=== PATIENT | female | born 1975 | race Caucasian/White ===

== ENCOUNTER 2020-07-09 15:09 | Inpatient (IN) | payer OTHER ==
[~2020-07-09] VITALS: Ht 172.7 cm; Wt 89.1 kg
[2020-07-09] MEDS ORDERED: ACETAMINOPHEN 500 MG TABLET PO ONE ×2 (15:55→16:00)
[2020-07-09] MEDS ORDERED: IV NORMAL SALINE 1,000ML 1,000 ML IV ONE (16:00)
[2020-07-09] MEDS ORDERED: IOHEXOL 300 MG/ML 75 ML VIAL. IV ONE (16:00)
[2020-07-09] MEDS ORDERED: ONDANSETRON PF 4 MG/2 ML VIAL. IVP ONE (16:00)
--- NOTE | 2020-07-09 16:02 | PHYS DOC ---
General Adult EDM: Chief Complaint: FEVER HPI: HPI: 45-year-old female presents with fever. She has had a fever for almost 5 days. She has had vomiting in the last 2 days. She went to [facility] where they did some kind of testing. They called her today and told her to go to the emergency room. She is not exactly sure what abnormal labs cause them to want her to come the emergency room. The patient did not initially have a cough. She has had a mild cough yesterday and today. She was tested for Covid and influenza 2 days ago and they were both negative. Patient denies dysuria or increased urinary frequency. She has no idea why she has a fever. Review of Systems: Review of Systems: Constitutional: Fever Eyes: Denies change in visual acuity HENT: Denies nasal congestion or sore throat Respiratory: Intermittent cough without shortness of breath Cardiovascular: Denies chest pain or edema GI: Denies abdominal pain, nausea, vomiting, bloody stools or diarrhea : Denies dysuria Musculoskeletal: Denies back pain or joint pain Integument: Denies rash Neurologic: Denies headache, focal weakness or sensory changes Endocrine: Denies polyuria or polydipsia Lymphatic: Denies swollen glands Psychiatric: Denies depression or anxiety Current Medications: Current Meds: Current Medications Medications (Trade) Dose Ordered Sig/[facility] Start Time Stop Time Status Last Admin Dose Admin Acetaminophen (Tylenol) 1,000 mg 1X ONCE 07/09/20 16:00 07/09/20 16:01 UNV Sodium Chloride 1,000 ml @ 1,000 mls/hr 1X ONCE 07/09/20 16:00 07/09/20 16:59 UNV Allergies: Allergies: Allergies Coded Allergies Type Severity Reaction Last Updated Verified Sulfa (Sulfonamide Antibiotics) Allergy Unknown 07/09/20 Yes acetaminophen Allergy Unknown 07/09/20 Yes hydrocodone Allergy Unknown 07/09/20 Yes Uncoded Allergies Type Severity Reaction Last Updated Verified OLD RABIE SHOT Allergy Unknown 07/09/20 Physical Exam: PE: Constitutional: Well developed, well nourished, obese, mild acute distress. [] HENT: Normocephalic, atraumatic, bilateral external ears normal, oropharynx moist, no oral exudates, nose normal. [] Eyes: PERRLA, EOMI, conjunctiva normal, no discharge. [] Neck: Normal range of motion, no tenderness, supple, no stridor. [] Cardiovascular: Heart rate 103, regular rhythm, no murmur [] Lungs & Thorax: Bilateral breath sounds clear to auscultation [] Abdomen: Bowel sounds normal, soft, mild left lower quadrant tenderness without guarding, no masses, no pulsatile masses. [] Skin: Warm, dry, no erythema, no rash. [] Back: No tenderness, no CVA tenderness. [] Extremities: No tenderness, no cyanosis, no clubbing, ROM intact, no edema. [] Neurologic: Alert and oriented X 3, normal motor function, normal sensory function, no focal deficits noted. [] Psychologic: Affect normal, judgement normal, mood concerned. [] EKG: EKG: [] Radiology/Procedures: Radiology/Procedures: [] Impressions: Exam: CT of chest without contrast. CT of abdomen and pelvis with contrast INDICATION: Fever, lower abdominal pain TECHNIQUE: Sequential axial images through the chest obtained without IV contrast. Sequential axial images through the abdomen and pelvis obtained following the administration of 75 mL of Isovue-370 IV contrast. Sagittal and co brittany reformatted images were reconstructed from the axial data and reviewed. Exposure: One or more of the following in the visualized dose reduction techniques were utilized for this examination: 1. Automated exposure control 2. Adjustment of the MA and/or KV according to patient size 3. Use of iterative of reconstructive technique Comparisons: None FINDINGS: Visualized portions of the thyroid are unremarkable. Mildly enlarged right hilar lymph nodes noted. Heart size is normal. No pericardial effusion. Moderate coronary artery calcifications. Thoracic aorta has a normal course and caliber. Pulmonary artery is not enlarged. Airways are patent. There is consolidative changes noted in the right lower lobe. No pneumothorax. No suspicious lung nodules. No pleural effusion or thickening. Liver, spleen, pancreas, and adrenals are unremarkable. Gallbladder surgically absent. No perinephric inflammation or hydronephrosis. No renal or ureteral calculi are identified. Bladder is decompressed not well evaluated. Uterus is absent. There is a cystic lesion at the left adnexa which measures approximately 3.1 cm in diameter. Moderate amount stool in colon. Appendix is normal. Small bowel is unremarkable. No free intra-abdominal air or fluid. No obstruction. Abdominal aorta has a normal course and caliber. No enlarged intra-abdominal lymph nodes are identified. No suspicious osseous lesions or acute fractures. IMPRESSION: 1. Consolidative changes in the right lower lobe favored to represent pneumonia. Follow-up imaging posttreatment to ensure resolution is recommended. 2. Right hilar adenopathy, likely reactive to the above process 3. Left adnexal cystic lesion measuring 3.1 cm in diameter favored represent simple cyst in the left ovary. Electronically signed by: Bernardo Jackman MD (07/09/2020 5:03 PM) [facility] DICTATED AND SIGNED BY: BERNARDO JACKMAN MD DATE: 07/09/201653 CC: KATELIN BENITEZ DO; PERI CORREIA ~MTH0 0 Heart Score: C/O Chest Pain: No Risk Factors: Risk Factors: DM, Current or recent (<one month) smoker, HTN, HLP, family history of CAD, obesity. Risk Scores: Score 0 - 3: 2.5% MACE over next 6 weeks - Discharge Home Score 4 - 6: 20.3% MACE over next 6 weeks - Admit for Clinical Observation Score 7 - 10: 72.7% MACE over next 6 weeks - Early Invasive Strategies Course & Med Decision Making: Course & Med Decision Making Pertinent Labs and Imaging studies reviewed. (See chart for details) On arrival the patient has a fever of 102.9. Her heart rate is 103, blood pressure 110/55. Her O2 is 92% on room air. Patient meets criteria for sepsis. See sepsis assessments for more details. I have ordered 30 mL/kg of fluids for the patient, blood cultures, lactic acid, and a gram of Rocephin. Work-up is pending. The patient's chest x-ray shows pneumonia. She also has a potassium of 2.8. I have ordered [address] of the chest confirms pneumonia. I will a dditionally give the patient azithromycin by IV. I will admit her to the hospital for sepsis caused by pneumonia. I spoke with Dr. Burks and he has accepted the patient for admission. 38 minutes of critical care time spent on this patient exclusive of other billable procedures. [] Dragon Disclaimer: Dragon Disclaimer: This electronic medical record was generated, in whole or in part, using a voice recognition dictation system. Departure Departure: Impression: Primary Impression: Sepsis Qualified Codes: A41.9 - Sepsis, unspecified organism Additional Impressions: Pneumonia Qualified Codes: J18.9 - Pneumonia, unspecified organism Elevated liver enzymes Hypokalemia Disposition: 09 ADMITTED INPATIENT Admitting Physician: Denzel Burks Condition: GUARDED Referrals: PERI CORREIA (PCP) Sepsis Assessment: Date and Time of Assessment Date: July 09, 2020 Time: 16:01 Respirations Respiratory Effort: Normal Respiratory Pattern: Tachypnea Cardiovascular Pulse Rhythm: Regular Lung Sounds Breath Sounds: Clear Capillary Refill Capillary Refill: Rt Hand < 3 seconds Peripheral Pulse Pulse Location: Monitor Pulse Strength: Normal (2+) Pulse Assessment Method: Monitor Integumentary Skin: Warm Skin Moisture: Moist Skin Turgor: Normal Skin Color: no erythema Fingernail Color: WNL Sepsis Assessment: Date and Time of Assessment Date: July 09, 2020 Time: 17:13 Respirations Respiratory Effort: Normal Respiratory Pattern: Normal Cardiovascular Pulse Rhythm: Regular HEART: No murmurs noted Lung Sounds Breath Sounds: Clear Capillary Refill Capillary Refill: Rt Hand < 3 seconds Peripheral Pulse Pulse Location: Monitor Pulse Strength: Normal (2+) Pulse Assessment Method: Monitor Integumentary Skin: Warm Skin Moisture: Dry Skin Turgor: Normal Skin Color: no erythema Fingernail Color: WNL KATELIN BENITEZ DO July 09, 2020 16:02
[2020-07-09] MEDS ORDERED: cefTRIAXone SODIUM 1 GM VIAL ONE (16:16)
[2020-07-09] MEDS ORDERED: IV NORMAL SALINE 50ML 50 ML ONE ×2 (16:16→16:18)
[2020-07-09 16:34] LABS: BASO % 0 % (0-3); EOS % 0 % (0-3); HEMATOCRIT 37.3 % (36.0-47.0); HEMOGLOBIN 12.5 g/dL (12.0-15.5); LYMPH # 0.6 x10^3/uL (1.0-4.8); LYMPH % 5 % (24-48); MEAN CORPUSCULAR HEMOGLOBIN 31 pg (25-35); MEAN CORPUSCULAR HGB CONC 34 g/dL (31-37); MEAN CORPUSCULAR VOLUME 93 fL (79-100); MONO % 8 % (0-9); NEUT # 11.8 x10^3uL (1.8-7.7); NEUT % 88 % (31-73); PLATELET COUNT 278 x10^3/uL (140-400); RED CELL DISTRIBUTION WIDTH 12.4 % (11.5-14.5); WHITE BLOOD COUNT 13.5 x10^3/uL (4.0-11.0)
[2020-07-09] MEDS: IV NORMAL SALINE 1,000ML 1,000 ML IV SCH ×2 (16:38→16:40)
--- NOTE | 2020-07-09 16:44 | RAD ---
EXAM: Chest, 2 views. HISTORY: Fever. COMPARISON: None. FINDINGS: 2 views of the chest are obtained. There is partially consolidated right lower lobe infiltr ate. There is no pleural effusion or pneumothorax. The heart is normal in size. IMPRESSION: Partially consolidated right lower lobe pneumonia. Follow-up to confirm resolution and ex clude a persistent underlying lesion. Electronically signed by: Brittany Muñoz MD (07/09/2020 4:41 PM) [id number]
[2020-07-09 16:59] LABS: ALBUMIN 2.6 g/dL (3.4-5.0); ALBUMIN/GLOBULIN RATIO 0.5 (1.0-1.7); CALCIUM 8.3 mg/dL (8.5-10.1); CREATININE 1.3 mg/dL (0.6-1.0); GFR 43.9; TOTAL BILIRUBIN 0.9 mg/dL (0.2-1.0); TOTAL PROTEIN 7.4 g/dL (6.4-8.2)
[2020-07-09 17:01] LABS: POTASSIUM 2.8 mmol/L (3.5-5.1)
--- NOTE | 2020-07-09 17:05 | RAD ---
Exam: CT of chest without contrast. CT of abdomen and pelvis with contrast INDICATION: Fever, lower abdominal pain TECHNIQUE: Sequential axial images through the chest obtained without IV contrast. Sequential axial i mages through the abdomen and pelvis obtained following the administration of 75 mL of Isovue-370 IV contrast. Sagittal and coronal reformatted images were reconstructed from the axial data and reviewed . Exposure: One or more of the following in the visualized dose reduction techniques were utilized for this examination: 1. Automated exposure control 2. Adjustment of the MA and/or KV according to patient size 3. Use of iterative of reconstructive technique Comparisons: None FINDINGS: Visualized portions of the thyroid are unremarkable. Mildly enlarged right hilar lymph nodes noted. Heart size is normal. No pericardial effusion. Moderate coronary artery calcifications. Thoracic aort a has a normal course and caliber. Pulmonary artery is not enlarged. Airways are patent. There is consolidative changes noted in the right lower lobe. No pneumothorax. No suspicious lung nodules. No pleural effusion or thickening. Liver, spleen, pancreas, and adrenals are unremarkable. Gallbladder surgically absent. No perinephric inflammation or hydronephrosis. No renal or ureteral calculi are identified. Bladder is decompressed not well evaluated. Uterus is absent. There is a cystic lesion at the left ad nexa which measures approximately 3.1 cm in diameter. Moderate amount stool in colon. Appendix is normal. Small bowel is unremarkable. No free intra-abdomi nal air or fluid. No obstruction. Abdominal aorta has a normal course and caliber. No enlarged intra-abdominal lymph nodes are identified. No suspicious osseous lesions or acute fractures. IMPRESSION: 1. Consolidative changes in the right lower lobe favored to represent pneumonia. Follow-up imaging p osttreatment to ensure resolution is recommended. 2. Right hilar adenopathy, likely reactive to the above process 3. Left adnexal cystic lesion measuring 3.1 cm in diameter favored represent simple cyst in the left ovary. Electronically signed by: Bernardo Baldwin MD (07/09/2020 5:03 PM) [facility]
[2020-07-09] MEDS ORDERED: AZITHROMYCIN 500 MG in IV NORMAL SALINE 250ML 250 ML IV ONE (17:30)
[2020-07-09] MEDS: POTASSIUM CHLORIDE 20MEQ 100 ML IV SCH (18:03)
[2020-07-09] MEDS ORDERED: IV NORMAL SALINE 250ML 250 ML ONE (18:09)
[2020-07-09] MEDS ORDERED: AZITHROMYCIN 500 MG VIAL. IV ONE (18:10)
[2020-07-09] MEDS ORDERED: ONDANSETRON PF 4 MG/2 ML VIAL. IVP PRN (18:15)
[2020-07-09] MEDS ORDERED: IV NORMAL SALINE 500ML 500 ML IV ONE (20:30)
[2020-07-09 21:22] VITALS: BP 96/60
--- NOTE | 2020-07-09 22:00 | NUR ---
The patient, MILO VALDES, 45 y/o, F admitted by SANDOVAL MINOR MD, was given written information regarding hospital policies, unit procedures and contact persons. Valuables were checked and VITALS OBTAINED. PT IS A&OX4 AND ABLE TO EXPRESS OWN CONCERNS. PT IS CURRENTLY RESTING IN BED WITH HOB ELEVATED.
[2020-07-09] MEDS ORDERED: MINERAL OIL/PETROLATUM,WHITE OPHTH OINT 3.5GM TUBE. OU PRN (22:30)
[2020-07-09] MEDS: METOPROLOL SUCC 24HR ER 50 MG TAB.ER.24H. PO SCH (22:44)
[2020-07-09] MEDS: ATORVASTATIN CALCIUM 20 MG TABLET PO SCH (22:57)
[2020-07-09] MEDS: LOSARTAN 50 MG TABLET. PO SCH (22:58)
[2020-07-09] MEDS: ACETAMINOPHEN 500 MG TABLET PO PRN (22:58)
[2020-07-09] MEDS ORDERED: hydroCHLOROthiazide 25 MG TABLET PO SCH (23:00)
[2020-07-09 23:28] VITALS: BP 143/74
[2020-07-10] MEDS: POTASSIUM CHLORIDE 20MEQ 100 ML IV SCH (00:35)
--- NOTE | 2020-07-10 02:25 | NUR ---
PT HAS HAD FEVERS THROUGH THE NIGHT TYLENOL AND ICE PACKS WERE GIVEN. PT CURRENTLY IN BED WITH ICE ON BACK OF NECK AND IN EACH ARM PIT. WILL CONTINUE TO MONITOR.
[2020-07-10 02:47] LABS: CLARITY,URINE HAZY; COLOR,URINE AMBER
[2020-07-10 02:48] LABS: BACTERIA,URINE FEW /HPF (0-FEW); BILIRUBIN,URINE SMALL (NEG); GLUCOSE,URINE 100 mg/dL (NEG); NITRITE,URINE NEG (NEG); SQUAMOUS EPITHELIAL CELL,UR MOD /LPF; UROBILINOGEN,URINE >=8.0 mg/dL (0.2 mg/dL); WBC,URINE 0 /HPF (0-4)
[2020-07-10 02:49] LABS: YEAST,URINE PRESENT /HPF
--- NOTE | 2020-07-10 04:11 | NUR ---
pt has own insulin pump/monitor. aware and is going to let pt continue to use pump/monitor during her admission. Novolog in pump
[2020-07-10] MEDS: ACETAMINOPHEN 500 MG TABLET PO PRN ×4 (05:05→21:34)
--- NOTE | 2020-07-10 05:14 | NUR ---
RECEIVED IN REPORT PT HAD RECEIVED 1000 ML NS X2. FOR START AND STOP TIMES REFER TO IV SPREAD SHEET.
[2020-07-10 05:50] VITALS: BP 147/85
[2020-07-10 07:30] LABS: CALCIUM 7.5 mg/dL (8.5-10.1); GFR 59.4; POTASSIUM 3.4 mmol/L (3.5-5.1)
[2020-07-10] MEDS: LACTOBACILLUS RHAMNOSUS GG 1 CAPSULE. PO SCH ×2 (09:00→21:34)
--- NOTE | 2020-07-10 09:21 | HP ---
ADMIT DATE: 07/09/2020 ATTENDING PHYSICIAN: Dr. Burks. CHIEF COMPLAINT: Fevers and cough. HISTORY OF PRESENT ILLNESS: The patient is a 45-year-old female admitted to the ED with several days of fevers, chills, cough and congestion. Workup in the ED showed a lobar infiltrate in the right lower lobe. She has had her COVID vaccines. She is a nonsmoker. She is diabetic; however. She does have an insulin pump. She is admitted then with a classic picture of community-acquired pneumococcal pneumonia. She was given initial dose of Zithromax and Rocephin. She was admitted for further IV antibiotics. She has had fevers. She does not have respiratory failure. She has adequate oxygen saturations on room air. PAST MEDICAL HISTORY: Significant for type 2 diabetes, insulin dependent. She has a pump managed by her primary care physician. ALLERGIES: SHE HAS ALLERGIES TO RABIES SHOT, SULFA DRUGS, TYLENOL, AND HYDROCODONE, EXACT REACTION IS UNCLEAR. CURRENT MEDICATIONS: Current scheduled medicine includes metoprolol, losartan, lactobacillus, Lipitor, and multivitamin. SOCIAL HISTORY: She is a nonsmoker, nondrinker. FAMILY HISTORY: Mom at age 62, ovarian cancer. There is also history of hypertension. REVIEW OF SYSTEMS: Significant for fevers up to 102.8 degrees Fahrenheit, chills, rigors. Minimal cough. No pleuritic symptoms. She denied any palpitation. All other systems reviewed and turned to be negative. PHYSICAL EXAMINATION: GENERAL: When I saw her, this is a pleasant, middle-aged female. INITIAL VITAL SIGNS: Showed a blood pressure of 143/74, her pulse is 74 and regular, temperature 102.3 degrees Fahrenheit, oxygen saturation 93% on room air. HEENT: Head is without trauma. Pupils are reactive. Sclerae nonicteric. Oropharynx is clear. NECK: Supple. No bruits or stridor. LUNGS: Coarse rhonchi at the right base. CARDIOVASCULAR: Showed regular heart tones. No gallops. ABDOMEN: Soft. EXTREMITIES: Without edema. NEUROLOGIC FINDING: Focally intact. SKIN: Warm and dry. PERTINENT LABORATORY STUDIES: The hemoglobin is 12.5 g/dL with a white count of 13,500. Initial potassium was 2.8 mEq per liter. Nonfasting blood sugar 136. Transaminases, AST 205. ALT 325. Bilirubin is normal. ASSESSMENT: 1. A 45-year-old female with a community-acquired pneumonia, right lower lobe classic presentation for pneumococcal pneumonia. 2. Type 2 diabetes mellitus with insulin pump. 3. Asymptomatic hypokalemia, this is being replaced. 4. Slight elevation of transaminases. I suspect this is due to nonalcoholic steatohepatitis. PLAN: 1. Admit to the inpatient unit. 2. Intravenous Rocephin and Zithromax will be continued on a daily basis. 3. Potassium supplementation. 4. Serial chemistries. 5. Diet as tolerated. 6. Continue insulin regimen per pump. At this time, I do not think that she will need any corticosteroids. 7. Follow up chest x-ray. STANTON/BEENA DR: Malvin TID: [id number] CC: PERI CORREIA
[2020-07-10 10:41] VITALS: BP 109/67
--- NOTE | 2020-07-10 13:05 | RAD ---
XR CHEST 1V CLINICAL INDICATIONS: Shortness of air. Lung infiltrate. Follow-up study. Comparison: July 09, 2020. Findings: Again seen is a consolidative right lower lobe lung infiltrate which has not improved. Left lung field remains clear. No pleural effusion or pneumothorax is seen. The heart size and mediastinu m and pulmonary vasculature and both hanane are stable. IMPRESSION: Persistent unchanged right lower lobe consolidative lung infiltrate. Electronically signed by: Edgar Quiros MD (07/10/2020 1:02 PM) [id number]
[2020-07-10 14:51] VITALS: BP 125/71
[2020-07-10] MEDS: AZITHROMYCIN 500 MG in IV NORMAL SALINE 250ML 250 ML IV SCH (17:30)
[2020-07-10 19:54] VITALS: BP 129/71
[2020-07-10] MEDS: LOSARTAN 50 MG TABLET. PO SCH (21:34)
[2020-07-10] MEDS: METOPROLOL SUCC 24HR ER 50 MG TAB.ER.24H. PO SCH (21:34)
[2020-07-10] MEDS: ATORVASTATIN CALCIUM 20 MG TABLET PO SCH (21:35)
[2020-07-10 23:19] VITALS: BP 116/66
[2020-07-10] MEDS: oxyCODONE/APAP 7.5/325 1 TAB TABLET PO PRN (23:33)
--- NOTE | 2020-07-11 01:34 | NUR ---
Pt c/o shivering and nausea with her fever, back and neck pain through the shift. Ice packs and percocet given. Pt sipping on iced diet dina isabel for nausea. Pt resting currently and core temp down to 99 degrees F.
[2020-07-11] MEDS: ACETAMINOPHEN 500 MG TABLET PO PRN ×3 (04:45→21:15)
[2020-07-11 04:56] VITALS: BP 135/69
[2020-07-11] MEDS ORDERED: IPRATRPIUM/ALBUTEROL 0.5/2.5MG 3 ML NEBU. ONE (05:13)
[2020-07-11] MEDS ORDERED: IPRATRPIUM/ALBUTEROL 0.5/2.5MG 3 ML NEBU. NEB ONE (05:30)
--- NOTE | 2020-07-11 05:37 | NUR ---
Pt c/o fever and shivering; tachypnea (36 RR) and oxygen saturation of 58% on room air observed with cyanosis of the lips. Rapid Response called. Pt given breathing treatment by RT with 7L oxygen bringing saturation up to 97%. Dr. Burks called and notified-orders given and implemented. Transfer to [place] being considered. ABGs, CBC and BMP drawn by lab. EKG and CXR also being performed. Pt resting with high flow nasal cannula at 7L with 96% oxygen saturation.
[2020-07-11 05:56] LABS: BGAS PH 7.39 (7.35-7.45)
[2020-07-11 05:58] LABS: BASO # 0.1 x10^3/uL (0.0-0.2); BASO % 1 % (0-3); EOS # 0.1 x10^3/uL (0.0-0.7); EOS % 0 % (0-3); HEMATOCRIT 34.8 % (36.0-47.0); HEMOGLOBIN 11.7 g/dL (12.0-15.5); LYMPH # 1.1 x10^3/uL (1.0-4.8); LYMPH % 8 % (24-48); MEAN CORPUSCULAR HEMOGLOBIN 32 pg (25-35); MEAN CORPUSCULAR HGB CONC 34 g/dL (31-37); MEAN CORPUSCULAR VOLUME 94 fL (79-100); MONO # 1.3 x10^3/uL (0.0-1.1); MONO % 9 % (0-9); NEUT # 12.4 x10^3uL (1.8-7.7); NEUT % 83 % (31-73); PLATELET COUNT 282 x10^3/uL (140-400); RED BLOOD COUNT 3.71 x10^6/uL (3.50-5.40); RED CELL DISTRIBUTION WIDTH 13.4 % (11.5-14.5)
[2020-07-11 06:04] LABS: CALCIUM 7.6 mg/dL (8.5-10.1); CREATININE 1.1 mg/dL (0.6-1.0); GFR 53.2; POTASSIUM 3.3 mmol/L (3.5-5.1)
--- NOTE | 2020-07-11 06:13 | EKG ---
[address] [address] Test Date: 2020-07-11 Test Time: 05:53:18 Pat Name: MILO VALDES Department: Room: 120 A Gender: F Other Sports Official: : 1975 Requested By: SANDOVAL MINOR Order Number: [id number] Reading MD: Faisal Ernandez Measurements Intervals Worden Rate: 107 P: 26 NH: 136 QRS: 37 QRSD: 60 T: 21 QT: 334 QTc: 451 Interpretive Statements SINUS TACHYCARDIA LOW LIMB LEAD VOLTAGE Electronically Signed On 07-13-2020 15:27:20 CDT by Faisal Ernandez
[2020-07-11] MEDS: IPRATRPIUM/ALBUTEROL 0.5/2.5MG 3 ML NEBU. NEB SCH ×4 (06:54→21:01)
--- NOTE | 2020-07-11 07:49 | RAD ---
XR CHEST 1V CLINICAL INDICATIONS: Shortness of breath lung infiltrate. Follow-up study. COMPARISON: July 10, 2020. Findings: Right lower lobe consolidative lung infiltrate has improved slightly. Linear atelectasis of the left midlung zone is now seen. No pleural effusion or pneumothorax is seen. Heart size and media stinum are stable. IMPRESSION: Stable right lower lobe lung infiltrate. Electronically signed by: Edgar Quiros MD (07/11/2020 7:46 AM) [id number]
[2020-07-11] MEDS: LACTOBACILLUS RHAMNOSUS GG 1 CAPSULE. PO SCH ×2 (09:06→21:13)
[2020-07-11] MEDS: oxyCODONE/APAP 7.5/325 1 TAB TABLET PO PRN ×3 (09:06→21:14)
[2020-07-11] MEDS ORDERED: TELM40TA PO (09:28)
[2020-07-11] MEDS ORDERED: ATOR20TA PO (09:29)
[2020-07-11] MEDS ORDERED: HYDR-2145 PO (09:29)
[2020-07-11] MEDS ORDERED: METO50TA29 PO (09:29)
--- NOTE | 2020-07-11 11:04 | PN ---
DATE: 07/11/2020 ATTENDING PHYSICIAN: Dr. Burks. SUBJECTIVE: The patient had desaturations, requiring supplemental oxygen. We initially had her on 7 liters, now down to 4 liters by nasal cannula to maintain saturation above 91%. OBJECTIVE: VITAL SIGNS: She is still having febrile spikes, T-max 100.4 degrees Fahrenheit, blood pressure is 135/69, respiratory rate fluctuates, room air oxygen saturation 91% on 4 liters at this time. HEENT: Head is without trauma. Pupils are reactive. Sclerae nonicteric. Oropharynx clear. NECK: Supple. LUNGS: Fairly good air movement. No wheezing. Significant rhonchi in the right base. HEART: Regular heart tones. No gallops. ABDOMEN: Soft. EXTREMITIES: Without edema. NEUROLOGIC: Focally intact. DIAGNOSTIC DATA: Followup chest x-ray this morning showed stable right lower lobe consolidation with slight ____. ASSESSMENT: 1. Community-acquired pneumonia, lobar pneumonia, classic presentation of Streptococcus pneumoniae. 2. Shunting with some hypoxemia, supplemental oxygen ordered. 3. Underlying type 2 diabetes, on insulin pump. PLAN: 1. We discussed whether she needs to be transferred to higher level of care. She prefers to stay here. I would give it another 24 hours to see if she improves. 2. Addition of Zosyn 4.5 grams IV q. 6 hours. 3. This will take the place of Rocephin. 4. Wean down supplemental oxygen. 5. Follow up x-rays as indicated. SUKH DR: Malvin TID: [id number]
[2020-07-11 11:51] VITALS: BP 120/63
[2020-07-11] MEDS: PIPERACILLIN/TAZOBACTAM 4.5 GM in IV NORMAL SALINE 50ML 50 ML IV SCH ×3 (12:21→23:46)
[2020-07-11 15:45] VITALS: BP 145/70
[2020-07-11] MEDS: AZITHROMYCIN 500 MG in IV NORMAL SALINE 250ML 250 ML IV SCH (18:00)
[2020-07-11 19:17] VITALS: BP 99/62
[2020-07-11] MEDS: LOSARTAN 25 MG TABLET. PO SCH (21:00)
[2020-07-11] MEDS: METOPROLOL SUCC 24HR ER 50 MG TAB.ER.24H. PO SCH (21:00)
[2020-07-11] MEDS ORDERED: METOPROLOL SUCC 24HR ER 50 MG TAB.ER.24H. PO SCH (21:00)
[2020-07-11] MEDS: ATORVASTATIN CALCIUM 20 MG TABLET PO SCH (21:13)
[2020-07-11] MEDS: hydroCHLOROthiazide 25 MG TABLET PO SCH (21:13)
[2020-07-11] MEDS: ONDANSETRON PF 4 MG/2 ML VIAL. IVP PRN (21:31)
[2020-07-11 22:54] VITALS: BP 94/56
[2020-07-12] MEDS: ONDANSETRON PF 4 MG/2 ML VIAL. IVP PRN ×3 (03:51→23:28)
[2020-07-12] MEDS: IPRATRPIUM/ALBUTEROL 0.5/2.5MG 3 ML NEBU. NEB SCH ×4 (05:21→21:43)
[2020-07-12 05:27] VITALS: BP 144/84
[2020-07-12] MEDS: PIPERACILLIN/TAZOBACTAM 4.5 GM in IV NORMAL SALINE 50ML 50 ML IV SCH ×4 (05:42→23:28)
--- NOTE | 2020-07-12 06:15 | NUR ---
Pt awake in bed at change of shift, stated that she feels "rough". Pt with low grade temp, Tylenol given and cool rags/ice packs per request. Pt with c/o right lower lung pain, Percocet given. IS teaching done by RT. Pt maintained O2 sat above 91% on 4L NC during shift. Pt c/o nausea off and on during night, PRN Zofran given and dina isabel given. Pt managed insulin pump independently after glucose readings.
[2020-07-12 07:29] LABS: CALCIUM 7.1 mg/dL (8.5-10.1); CREATININE 0.8 mg/dL (0.6-1.0); GFR 76.9; POTASSIUM 3.8 mmol/L (3.5-5.1)
[2020-07-12] MEDS: LACTOBACILLUS RHAMNOSUS GG 1 CAPSULE. PO SCH ×2 (08:12→20:30)
[2020-07-12] MEDS: ACETAMINOPHEN 500 MG TABLET PO PRN (08:16)
[2020-07-12] MEDS: oxyCODONE/APAP 7.5/325 1 TAB TABLET PO PRN (08:16)
--- NOTE | 2020-07-12 09:00 | NUR ---
pt c/o pain in right lower ribs this morning, given pain medication per order. pt c/o dry nose from oxygen, humidity applied.
[2020-07-12] MEDS ORDERED: FUROSEMIDE 40 MG/4 ML VIAL IVP ONE (10:15)
--- NOTE | 2020-07-12 10:57 | NUR ---
pt set up for shower, did not want to wear oxygen in shower, felt ok until the very end and started to become short of breath. assisted back to bed. spo2 checked on room air, 84%. 3L nc reapplied and rt here to give breathing treatment.
[2020-07-12 11:00] VITALS: BP 136/89
[2020-07-12] MEDS: oxyCODONE/APAP 10/325 1 TAB TABLET PO PRN ×3 (11:14→23:28)
[2020-07-12 14:50] VITALS: BP 143/92
[2020-07-12] MEDS: AZITHROMYCIN 500 MG in IV NORMAL SALINE 250ML 250 ML IV SCH (17:15)
[2020-07-12 19:18] VITALS: BP 112/65
[2020-07-12] MEDS: LOSARTAN 25 MG TABLET. PO SCH (20:30)
[2020-07-12] MEDS: ATORVASTATIN CALCIUM 20 MG TABLET PO SCH (20:30)
[2020-07-12] MEDS: hydroCHLOROthiazide 25 MG TABLET PO SCH (20:30)
[2020-07-12] MEDS: METOPROLOL SUCC 24HR ER 50 MG TAB.ER.24H. PO SCH (20:30)
--- NOTE | 2020-07-12 21:53 | PN ---
DATE: 07/12/2020 ATTENDING PHYSICIAN: Dr. Burks. SUBJECTIVE: She is feeling better. She does not have anymore rigors or chills. Her fever has ____. She is breathing better. She denied any dyspnea. Her oxygen saturations are 94% on 4 liters by nasal cannula. Main complaint is some bloating and distention in her abdomen related to the IV saline she received in the ED. OBJECTIVE FINDINGS: VITAL SIGNS: Blood pressure this morning is 140/84, pulse is 90 and regular, T-max 99.3 degrees Fahrenheit, oxygen saturation 94% on 4 liters. HEENT: Head is without trauma. Pupils are reactive. Sclerae nonicteric. Oropharynx is clear. NECK: Supple, no bruits identified. LUNGS: Diminished breath sounds at right base. CARDIOVASCULAR: Showed regular heart tones. No gallops. Peripheral pulses palpable and full. ABDOMEN: Slightly distended. No guarding or rebound tenderness. EXTREMITIES: Showed no edema. NEUROLOGIC FINDING: Focally intact. SKIN: Warm and dry. ASSESSMENT: 1. A 45-year-old female with lobar pneumonia, most likely pneumococcus right lower lobe. 2. Hypoxemia, improving. 3. Type 2 diabetes with insulin pump. 4. Essential hypertension. PLAN: 1. Wean down supplemental oxygen to maintain saturations greater than 90%. 2. Continue Zosyn. 3. We can discontinue Rocephin. 4. Intermittent Lasix ordered for bloating. 5. Diet as tolerated. STANTON/JOSS DR: STANTON/marine TID: [id number]
[2020-07-12 23:35] VITALS: BP 125/80
[2020-07-13] MEDS: IPRATRPIUM/ALBUTEROL 0.5/2.5MG 3 ML NEBU. NEB SCH ×4 (05:12→19:29)
[2020-07-13] MEDS: oxyCODONE/APAP 10/325 1 TAB TABLET PO PRN (05:35)
[2020-07-13] MEDS: PIPERACILLIN/TAZOBACTAM 4.5 GM in IV NORMAL SALINE 50ML 50 ML IV SCH ×4 (05:35→23:55)
[2020-07-13] MEDS: ONDANSETRON PF 4 MG/2 ML VIAL. IVP PRN (05:35)
[2020-07-13 05:55] VITALS: BP 147/87
[2020-07-13] MEDS: LACTOBACILLUS RHAMNOSUS GG 1 CAPSULE. PO SCH ×2 (08:17→21:05)
--- NOTE | 2020-07-13 08:35 | RAD ---
INDICATION: Reason: PNA f/u COMPARISON: July 11, 2020 FINDINGS: 2 view of chest obtained. Cardiac silhouette is similar to prior. Hypoexpanded exam. Bilateral airspace opacities most prominen t at the right greater than left lung base. IMPRESSION: * Bilateral pulmonic opacities are again seen and appears slightly increased from prior. Could be fr om bilateral infiltrate. Electronically signed by: Adalberto Rizo MD (07/13/2020 8:33 AM) [id number]
[2020-07-13] MEDS ORDERED: PROCHLORPERAZINE 10 MG/2 ML VIAL. IV PRN (11:15)
[2020-07-13 11:43] VITALS: BP 164/88
[2020-07-13] MEDS: oxyCODONE/APAP 5/325 1 TAB TABLET PO PRN ×2 (11:55→17:56)
[2020-07-13 15:00] VITALS: BP 161/88
--- NOTE | 2020-07-13 18:17 | NUR ---
NURSING NOTE PT IN BED THIS AM UPON ASSESSMENT AND MEDICATION ADMINISTRATION. PT STATED THAT SHE GETS NAUSEATED AT TIMES. PT NAUSEA MEDICATION NOT DUE. ORDER FOR COMPAZINE OBTAINED, PT ALSO REQUEST TO DECREASE PAIN MEDICATION DOSAGE. PT IS CALM AND COOPERATIVE, A&O. DR MINOR DISCONTINUED PT OXYGEN. ANA MARIA ROWAN.
[2020-07-13 18:53] VITALS: BP 137/87
[2020-07-13] MEDS: ACETAMINOPHEN 500 MG TABLET PO PRN (19:56)
[2020-07-13] MEDS ORDERED: OXYC1TAB19 PO (20:35)
--- NOTE | 2020-07-13 21:00 | PN ---
DATE: 07/13/2020 ATTENDING PHYSICIAN: Dr. Burks. SUBJECTIVE: The patient is breathing better. We were able to wean her off of supplemental oxygen. Her swelling and pleuritic type chest pains improved. She is moving air better. Nausea, not too severe, persist. She has been a type 1 diabetic for the last 40 years. I suspect she may have some component of diabetic gastroparesis. OBJECTIVE: VITAL SIGNS: Blood pressure is 125/80, pulse 96 and regular, temperature 98.6 degrees Fahrenheit, oxygen saturation 93% on room air. HEENT: Head is without trauma. Pupils are reactive. Sclerae nonicteric. Oropharynx clear. NECK: Supple. LUNGS: Coarse rhonchi at the right base. HEART: Regular heart tones. ABDOMEN: Soft. No guarding. EXTREMITIES: Without edema. NEUROLOGIC: Function focally intact. LABORATORY DATA: Follow-up chest x-ray showed improvement in clearing of the right lower lobe infiltrate. ASSESSMENT: 1. A 45-year-old female with lobar pneumonia and consolidation, most likely pneumococcus in the right lower lobe. 2. Hypoxemia, improving with adequate saturations on room air. 3. Type 1 diabetes with insulin pump. 4. Essential hypertension. PLAN: 1. Continue Zosyn as ordered. 2. Because of nausea, we will hold off the Zithromax. 3. Weaning down oxygen. 4. Continue Zosyn. 5. Intermittent Lasix. 6. Tentative discharge soon either tomorrow or the next day. STANTON/AUNG DR: Malvin TID: [id number]
[2020-07-13] MEDS: ATORVASTATIN CALCIUM 20 MG TABLET PO SCH (21:05)
[2020-07-13] MEDS: hydroCHLOROthiazide 25 MG TABLET PO SCH (21:05)
[2020-07-13] MEDS: LOSARTAN 25 MG TABLET. PO SCH (21:05)
[2020-07-13] MEDS: METOPROLOL SUCC 24HR ER 50 MG TAB.ER.24H. PO SCH (21:06)
[2020-07-13] MEDS: oxyCODONE/APAP 7.5/325 1 TAB TABLET PO PRN (23:55)
[2020-07-14] MEDS: IPRATRPIUM/ALBUTEROL 0.5/2.5MG 3 ML NEBU. NEB SCH ×2 (04:46→09:13)
[2020-07-14] MEDS: PIPERACILLIN/TAZOBACTAM 4.5 GM in IV NORMAL SALINE 50ML 50 ML IV SCH ×2 (06:00→11:36)
[2020-07-14 06:21] VITALS: BP 145/95
[2020-07-14] MEDS: oxyCODONE/APAP 7.5/325 1 TAB TABLET PO PRN ×2 (07:16→13:43)
[2020-07-14] MEDS: LACTOBACILLUS RHAMNOSUS GG 1 CAPSULE. PO SCH (08:18)
[2020-07-14 11:47] VITALS: BP 160/86
[2020-07-14 13:31] LABS: BASO % 1 % (0-3); EOS # 0.2 x10^3/uL (0.0-0.7); EOS % 3 % (0-3); HEMATOCRIT 33.7 % (36.0-47.0); HEMOGLOBIN 11.4 g/dL (12.0-15.5); LYMPH # 1.6 x10^3/uL (1.0-4.8); LYMPH % 21 % (24-48); MEAN CORPUSCULAR HEMOGLOBIN 32 pg (25-35); MEAN CORPUSCULAR HGB CONC 34 g/dL (31-37); MEAN CORPUSCULAR VOLUME 94 fL (79-100); MONO # 0.5 x10^3/uL (0.0-1.1); MONO % 6 % (0-9); NEUT # 5.6 x10^3uL (1.8-7.7); NEUT % 70 % (31-73); PLATELET COUNT 506 x10^3/uL (140-400); RED BLOOD COUNT 3.58 x10^6/uL (3.50-5.40); RED CELL DISTRIBUTION WIDTH 13.8 % (11.5-14.5)
[2020-07-14 13:41] LABS: CALCIUM 8.7 mg/dL (8.5-10.1); CREATININE 1.1 mg/dL (0.6-1.0); GFR 53.2; POTASSIUM 3.2 mmol/L (3.5-5.1)
[2020-07-14 13:47] LABS: ALBUMIN 2.1 g/dL (3.4-5.0); ALBUMIN/GLOBULIN RATIO 0.4 (1.0-1.7); TOTAL BILIRUBIN 0.7 mg/dL (0.2-1.0); TOTAL PROTEIN 7.4 g/dL (6.4-8.2)
[2020-07-14] MEDS ORDERED: POTA20TA4 PO (14:11)
[2020-07-14] MEDS ORDERED: CEFD300C PO (14:11)
[2020-07-14] MEDS ORDERED: POTASSIUM CHLORIDE 20 MEQ TABLET.ER. PO ONE (14:30)
--- NOTE | 2020-07-14 14:57 | NUR ---
DISCHARGE Pt discharged today by Dr. Carter. Pt and verbalized understanding of discharge and hard copy prescriptions. All questions addressed. Pt GCS 15 and VSS upon discharge. CC, RN
--- NOTE | 2020-07-14 19:46 | DS ---
DATE OF DISCHARGE: 07/14/2020 HOSPITAL COURSE: The patient was admitted on 07/09/2020 with a complaint of fever that has been going on for almost 5 days. She had vomiting over the last 2 days. She went to [facility] where they did some kind of testing and was told to come to the Emergency Room. She is not exactly sure what abnormal labs causing to want her to come to the Emergency Room. She did not initially have any cough. On arrival, she said that she has mild cough. She was tested for COVID and influenza 2 days ago and reports were negative. Further investigation showed that she has right lower lobe pneumonia, marked leukocytosis and fever and was started on community-acquired pneumonia protocol. Apparently, she has had multiple episodes of nausea, vomiting and therefore Zithromax was discontinued. She was switched to Zosyn. She has been afebrile for the last 72 hours. Her white cell count is down to 8,000 from 15,000. She is maintaining her oxygen saturation at 96%, generally feeling very well and would like to go home and therefore, the patient was discharged home to complete treatment as an outpatient. PHYSICAL EXAMINATION: GENERAL: When I saw her today, she looked well and was clearly in no apparent respiratory distress. No pallor, jaundice, cyanosis. No lymphadenopathy, no thyromegaly, no jugular venous distention, no limb edema. VITAL SIGNS: Heart rate was 93, blood pressure is 160/86, temperature was 98.3, respiratory rate 20, and oxygen saturation was 95%. HEAD, EYES, EARS, NOSE AND THROAT: Showed normocephalic and atraumatic. NECK: Supple. HEART: Showed normal first and second heart sounds. No gallop, murmur. CHEST: Shows central trachea, equal bilateral expansion, air entry, vesicular breath sounds with crepitation mostly in the right side posteriorly. ABDOMEN: Soft, nontender. NEUROLOGIC: She was grossly intact. LABORATORY DATA: Today showed a white cell count to be 8000, hemoglobin 11, hematocrit 33, MCV 94 and platelet count 506,000 with normal manual differential. Her chemistry showed a serum sodium 136, potassium 3.2, chloride 98, bicarbonate 32, anion gap of 6, BUN 7, creatinine 1.1. Estimated GFR was 53 mL per minute. Her glucose was 242, calcium is 8.7. Total bilirubin is normal. AST, ALT, alkaline phosphatase are elevated, although they are trending down. Her total protein 7.4, albumin 2.1. DISCHARGE MEDICATIONS: The patient was discharged home to continue on cefdinir 300 mg twice a day for 6 more days, potassium chloride 20 mEq twice a day, atorvastatin calcium 20 mEq once a day, hydrochlorothiazide 25 mg once a day, metoprolol succinate 50 mg once a day, oxycodone/APAP 7.5/325 one tablet every 6 hours and Micardis 40 mg once a day. FINAL DISCHARGE DIAGNOSES: 1. Community-acquired pneumonia. 2. Insulin requiring type 2 diabetes mellitus. 3. Hypertension. 4. Hyperlipidemia. 5. Hypokalemia. BETTY/JOSS DR: Angela TID: [id number]
== END 2020-07-14 14:55 | disposition home or self-care (01) | DRG 871 ==
LOC: ER 15:09 → 1 SOUTH 18:02
PROVIDERS: ADMIT Hospitalist; ATTEND Hospitalist
DX: A41.9 Sepsis, unspecified organism (principal); J13 Pneumonia due to Streptococcus pneumoniae; E78.5 Hyperlipidemia, unspecified; E87.6 Hypokalemia; I10 Essential (primary) hypertension; Z96.41 Presence of insulin pump (external) (internal); E11.9 Type 2 diabetes mellitus without complications; R09.02 Hypoxemia; Z79.4 Long term (current) use of insulin; Z80.41 Family history of malignant neoplasm of ovary; Z82.49 Family history of ischemic heart disease and other diseases of the circulatory system; Z88.5 Allergy status to narcotic agent; Z88.2 Allergy status to sulfonamides; Z88.8 Allergy status to other drugs, medicaments and biological substances
CPT/HCPCS: 36415; 36600; 71045; 71046; 71250; 74177; 80048; 80053; 81001; 82803; 82947; 83605; 84484; 85025; 87040; 93005; 94640; 94760; 96365; 96367; 96375; G0238; J0456; J0696; J0780; J1940; J2405; J2543; J3480; J7040; J7050; Q9967; 99291-25; J7030